=== PATIENT | male | born 1975 | race African-American/Black ===

== ENCOUNTER 2017-08-22 16:59 | Emergency (ER) | payer OTHER ==
[~2017-08-22] VITALS: Ht 170.2 cm; Wt 83.9 kg
--- NOTE | ~2017-08-22 | EKG ---
[place] [address] [facility] [place] [address] ELECTROCARDIOGRAM REPORT Name: RONAN NUNES [facility] [id number] Admission: 08/22/17 Attend Phys: Discharge: 08/22/17 Date of : 79 Report #: [id number] THIS REPORT FOR: //name// [facility] ED Test Date: 2017-08-22 Test Time: 18:13:54 Pat Name: RONAN NUNES Department: Room: Gender: M Type Mapper: RL : 1975 Requested By: Marily Chavarria Order Number: [id number] MD: Bryce Vieira Measurements Intervals [place] Rate: 92 P: 33 [place]: 179 QRS: 88 QRSD: 80 T: 3 QT: 355 QTc: 440 Interpretive Statements Sinus rhythm Early repolarization Compared to ECG 05/13/2006 13:52:56 No significant change was found Electronically Signed On 08-23-2017 8:04:26 CDT by Bryce Vieira [email or web address] <ELECTRONICALLY SIGNED> By: Bryce Vieira MD, [facility] 08/23/17 0804 1813 1813 Bryce Vieira MD, FACC /EPI
[2017-08-22 17:21] LABS: HEMATOCRIT 43.6 % (42.0-52.0); HEMOGLOBIN 14.9 gm/dL (14.0-18.0); MCH 33.8 pg (26.0-34.0); MCHC 34.1 g/dL (28.0-37.0); RBC 4.4 mil/uL (4.50-6.00); RDW 13.2 % (10.5-14.5); WBC 5.6 thou/uL (4.0-11.0)
[2017-08-22 17:26] LABS: CALCIUM 9.3 mg/dL (8.5-10.1); POTASSIUM 3.3 mmol/L (3.5-5.1)
[2017-08-22 17:41] LABS: ALBUMIN 3.5 g/dL (3.4-5.0); MAGNESIUM 1.7 mg/dL (1.8-2.4); TOTAL BILIRUBIN 0.9 mg/dL (<0.1-1.0); TOTAL PROTEIN 7.8 g/dL (6.4-8.2)
[2017-08-22] MEDS ORDERED: VITAMIN D2000 UNIT PO (18:10)
[2017-08-22] MEDS ORDERED: UNICOMPLEX M TA1 TA1 PO (18:10)
[2017-08-22] MEDS ORDERED: OLOPATADINE HC2.5 ML OPHTHALMIC (18:11)
[2017-08-22] MEDS ORDERED: LIPITOR 20 MG T20 M1 PO (18:12)
[2017-08-22] MEDS ORDERED: FLONASE 0.05%50 MCG NASAL (18:12)
[2017-08-22] MEDS ORDERED: ZANTAC 150MG T150 MG PO (18:13)
[2017-08-22] MEDS ORDERED: LANTUS SUBQ (18:13)
[2017-08-22] MEDS ORDERED: NOVOLOG100 UNIT/1 SUBQ (18:16)
[2017-08-22] MEDS ORDERED: IBUPROFEN 400400 M2 PO (18:17)
[2017-08-22] MEDS ORDERED: CLARITIN10 MG PO (18:18)
[2017-08-22] MEDS ORDERED: TYLENOL EXTRA500 MG PO ×2 (18:18)
[2017-08-22] MEDS ORDERED: DIABETIC T100 MG/5 M PO (18:21)
[2017-08-22 20:24] VITALS: BP 122/86
== END 2017-08-22 20:25 | disposition home or self-care (01) ==
LOC: ER 16:59
PROVIDERS: Physician Assistant
DX: R56.9 Unspecified convulsions (principal); R07.89 Other chest pain; S09.90XA Unspecified injury of head, initial encounter; E11.649 Type 2 diabetes mellitus with hypoglycemia without coma; E78.5 Hyperlipidemia, unspecified; K21.9 Gastro-esophageal reflux disease without esophagitis; W07.XXXA Fall from chair, initial encounter; Y93.89 Activity, other specified; Y92.89 Other specified places as the place of occurrence of the external cause; Y99.8 Other external cause status

== ENCOUNTER 2017-08-23 09:10 | Emergency (ER) | payer OTHER ==
[~2017-08-23] VITALS: Ht 167.6 cm; Wt 72.6 kg
--- NOTE | ~2017-08-23 | EKG ---
[place] [address] [facility] [place] [address] ELECTROCARDIOGRAM REPORT Name: RONAN NUNES [facility] [id number] Admission: 08/23/17 Attend Phys: Discharge: 08/23/17 Date of : [birth year] Report #: [id number] THIS REPORT FOR: //name// 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
[~2017-08-23 09:10] MED LIST: CLARITIN10 MG PO; DIABETIC T100 MG/5 M PO; FLONASE 0.05%50 MCG NASAL; IBUPROFEN 400400 M2 PO; LANTUS SUBQ; LIPITOR 20 MG T20 M1 PO; NOVOLOG100 UNIT/1 SUBQ; OLOPATADINE HC2.5 ML OPHTHALMIC; TYLENOL EXTRA500 MG PO; UNICOMPLEX M TA1 TA1 PO; VITAMIN D2000 UNIT PO; ZANTAC 150MG T150 MG PO
[2017-08-23 09:25] LABS: ABSOLUTE NEUTROPHILS 1.7 thou/uL (1.4-8.2); BASOPHILS 1.1 % (0.0-2.0); EOSINOPHILS 0.7 % (0.0-3.0); HEMATOCRIT 41.6 % (42.0-52.0); HEMOGLOBIN 14.1 gm/dL (14.0-18.0); LYMPHOCYTES 52.7 % (24.0-44.0); MCHC 33.9 g/dL (28.0-37.0); MCV 100.4 fL (80.0-100.0); MONOCYTES 10.1 % (1.0-8.0); PLATELET COUNT 188 thou/uL (150-400); POLYS 35.4 % (36.0-66.0); RBC 4.14 mil/uL (4.50-6.00); RDW 13.2 % (10.5-14.5); WBC 4.9 thou/uL (4.0-11.0)
[2017-08-23 09:36] LABS: ANION GAP 6 mmol/L (7-16); BUN 14 mg/dL (7-18); CALCIUM 8.8 mg/dL (8.5-10.1); CHLORIDE 103 mmol/L (98-107); CO2 29 mmol/L (21-32); GLUCOSE 150 mg/dL (74-106); POTASSIUM 3.6 mmol/L (3.5-5.1); SODIUM 138 mmol/L (136-145)
[2017-08-23 09:46] LABS: TROPONIN-I < 0.04 ng/mL (<0.06)
[2017-08-23 13:42] VITALS: BP 113/73
== END 2017-08-23 13:43 | disposition home or self-care (01) ==
LOC: ER 09:10
PROVIDERS: Emergency Medicine
DX: E11.649 Type 2 diabetes mellitus with hypoglycemia without coma (principal); E78.5 Hyperlipidemia, unspecified; K21.9 Gastro-esophageal reflux disease without esophagitis